=== PATIENT | male | born 1945 | race Caucasian/White ===

== ENCOUNTER 2020-01-04 14:48 | Emergency (ER) | payer MEDICARE ==
[2020-01-04] MEDS ORDERED: Nitroglycerin 0.4 MG TAB 1 EACH ONE (15:01)
[2020-01-04] MEDS ORDERED: Aspirin Chewable 81 MG TAB ONE (15:01)
[2020-01-04 15:09] LABS: #Basophils 0.1 thou/uL (0.0-0.2); #Eosinphils 0.1 thou/uL (0.0-0.7); #Lymphocytes 1.4 thou/uL (1.20-3.40); #Monocytes 0.4 thou/uL (0.11-0.59); #Neutrophils 10.2 thou/uL (1.40-6.50); %Basophils 0.8 % (0.0-1.0); %Eosinophils 1.2 % (0.0-10.0); %Lymphocytes 11.2 % (21.0-51.0); %Monocytes 3.3 % (0.0-10.0); %Neutrophils 83.6 % (42.0-75.0); Hemoglobin 15.6 g/dL (14.0-18.0); Mean Corpuscular HGB CONC 32.1 g/dL (32.0-36.0); Mean Corpuscular Hemoglobin 30.8 pg (27.0-31.0); Mean Corpuscular Volume 96.2 fL (78.0-98.0); Mean Platelet Volume 9.9 fL (7.4-10.4); Platelet Count 309 thou/uL (130-400); RBC Distribution Width 12.6 % (11.5-14.5); Red Blood Cell (RBC) Count 5.05 mill/uL (4.70-6.10); White Blood Cell (WBC) Count 12.2 thou/uL (4.8-10.8)
--- NOTE | 2020-01-04 15:15 | RAD ---
PORTABLE CHEST 1 VIEW: DATE: 01/04/2020. TIME: 3:14 PM. HISTORY: Chest pain. FINDINGS/IMPRESSION: The heart size is normal. The aorta is tortuous. The lungs are expanded with mild prominence of the pulmonary vascularity. No lobar consolidation, pneumothoraces, or pleural effusions are seen. POS: [facility]
[2020-01-04 15:18] LABS: INR-International Normal Ratio 0.9; PTT 22.8 SEC (22.9-36.1)
[2020-01-04] MEDS ORDERED: Morphine 2 MG/ML SYRINGE ONE (15:23)
[2020-01-04] MEDS ORDERED: Ondansetron PF 4 MG/2 ML Vial ONE (15:24)
[2020-01-04 15:29] LABS: ALT (SGPT) 30 U/L (8-55); AST (SGOT) 39 U/L (5-34); Albumin 4.7 g/dL (3.4-4.8); Alkaline Phosphatase 55 U/L (40-110); Anion Gap 19 mmol/L (10-20); BUN (Urea Nitrogen) 20 mg/dL (8.4-25.7); Bilirubin, Total 0.4 mg/dL (0.2-1.2); CK (CPK) 121 U/L (30-200); Calc. Creatinine Clearance 0 mL/min (70-130); Calcium 9.4 mg/dL (7.8-10.44); Carbon Dioxide 18 mmol/L (23-31); Chloride 103 mmol/L (98-107); Estimated GFR-MDRD 77; Globulin 3.2 g/dL (2.4-3.5); Glucose 135 mg/dL (83-110); Potassium 4.1 mmol/L (3.5-5.1); Protein, Total 7.9 g/dL (5.8-8.1); Sodium 136 mmol/L (136-145)
[2020-01-04] MEDS ORDERED: Heparin 5,000 UNITS/ML VIAL ONE (15:44)
[2020-01-04] MEDS ORDERED: Sodium Chloride 0.9% 1,000 ML ONE (15:44)
[2020-01-04] MEDS ORDERED: Heparin 25,000 units/D5W 500 ML ONE (15:44)
== END 2020-01-04 16:16 | disposition short-term general hospital (02) ==
LOC: MADERS 14:48
DX: I21.4 Non-ST elevation (NSTEMI) myocardial infarction (principal); R79.1 Abnormal coagulation profile; E78.5 Hyperlipidemia, unspecified; I10 Essential (primary) hypertension; E78.00 Pure hypercholesterolemia, unspecified
CPT/HCPCS: 71045; 80053; 82550; 83880; 84484; 85025; 85379; 85610; 85730; 93005; 94760; 96365; 96375; J1644; J2270; J2405; J7050